=== PATIENT | female | born 1950 | race Two or more races ===

== ENCOUNTER 2019-06-12 04:18 | Emergency (ER) | payer MEDICARE, OTHER ==
[~2019-06-12] VITALS: Ht 152.4 cm; Wt 65.3 kg
--- NOTE | 2019-06-12 04:20 | NUR ---
PT BIBRA 40 FROM HOME C/O ETOH PER PT SHE TOOK WHISKEY. PT IS AAOX2, NOT IN RESPIRATORY DISTRESS, HOOKED TO MONITOR, KEPT RESTED AND COMFORTABLE, WILL CONTINUE TO MONITOR.
[2019-06-12] MEDS ORDERED: HALOPERIDOL LACTATE INJ 5 MG/ML VIAL ONE (04:53)
[2019-06-12] MEDS ORDERED: diphenhydrAMINE HCL 50 MG/ML VIAL ONE (04:53)
[2019-06-12] MEDS ORDERED: LORAZEPAM INJ 2 MG/ML VIAL ONE (04:53)
[2019-06-12] MEDS ORDERED: HALOPERIDOL LACTATE INJ 5 MG/ML VIAL IM ONE (05:00)
[2019-06-12] MEDS ORDERED: diphenhydrAMINE HCL 50 MG/ML VIAL IM ONE (05:00)
[2019-06-12] MEDS ORDERED: LORAZEPAM INJ 2 MG/ML VIAL IV ONE (05:00)
--- NOTE | 2019-06-12 05:07 | NUR ---
PT PLACED ON MONITOR AND PULSE OX. SITTER AT BEDSIDE. WILL CONTINUE TO MONITOR.
--- NOTE | 2019-06-12 05:22 | NUR ---
CALLED RADIOLOGY FOR CT
--- NOTE | 2019-06-12 05:28 | NUR ---
BROUGHT TO CT
[2019-06-12] MEDS ORDERED: LORAZEPAM INJ 2 MG/ML VIAL IM ONE (05:30)
--- NOTE | 2019-06-12 05:40 | NUR ---
BROUGHT BACK FROM CT
--- NOTE | 2019-06-12 06:51 | NUR ---
Patient is resting comfortably in bed. Easily aroused. VSS.
--- NOTE | 2019-06-12 08:59 | NUR ---
Assumed care patient eyes close asleep vitals taken and filed sitter @ bedside c ontinue to monitor
--- NOTE | 2019-06-12 13:03 | NUR ---
ALAN CONNORS [phone].
--- NOTE | 2019-06-12 13:26 | NUR ---
Patient awake alert to name patient asking for rest room noted patient to stand with minmal assist and and able to do steps to the bathroom with minmal assist snacks given able to sips inth the straw
--- NOTE | 2019-06-12 14:32 | NUR ---
Patient assisted to WC ,her Daughter made aware to follow up PMD in 2 days verbalized understanding
[2019-06-12 14:33] VITALS: BP 123/78
== END 2019-06-12 14:35 | disposition home or self-care (01) ==
LOC: ER 04:20 → EDBD 04:20 → ER 14:35
DX: F10.129 Alcohol abuse with intoxication, unspecified (principal); R51 Headache; I10 Essential (primary) hypertension; E11.9 Type 2 diabetes mellitus without complications; Y90.9 Presence of alcohol in blood, level not specified
CPT/HCPCS: 70450; 96372 ×2; 99284; J1200; J1630; J2060